=== PATIENT | male | born 1945 | race Caucasian/White ===

== ENCOUNTER 2016-11-19 16:50 | Observation (INO) | payer MEDICARE ==
[2016-11-19 16:50] VITALS: BMI 29.0
[2016-11-19] MEDS ORDERED: Nitroglycerin 2% Ointment Foilpak UD TOP STA (17:09)
[2016-11-19 17:27] LABS: BASO # 0.1 K/uL (0.0-0.2); BASO % 1.1 % (0.0-2.0); EOS # 0.2 K/uL (0.0-0.7); EOS % 3.1 % (0.0-4.0); HEMOGLOBIN 13.5 g/dL (12.0-18.0); LYMPH # 1.7 K/uL (1.0-4.3); LYMPH % 25.3 % (20.0-40.0); MEAN CELL VOLUME 79.7 fL (80.0-94.0); MEAN CORPUSCULAR HEMOGLOBIN 26.2 pg (27.0-31.0); MEAN CORPUSCULAR HGB CONC 32.9 g/dL (33.0-37.0); MEAN PLATELET VOLUME 9.7 fL (7.2-11.7); MONO # 0.6 K/uL (0.0-0.8); MONO % 8.4 % (0.0-10.0); NEUT # 4.1 K/uL (1.8-7.0); NEUT % 62.1 % (50.0-75.0); RBC 5.17 Mil/uL (4.40-5.90); RED CELL DISTRIBUTION WIDTH 14.9 % (11.5-14.5); WHITE BLOOD COUNT 6.6 K/uL (4.8-10.8)
[2016-11-19 17:32] LABS: ALBUMIN 3.9 g/dL (3.5-5.0)
[2016-11-19 17:35] LABS: ALB/GLOB RATIO 1.3 (1.0-2.1); AST/SGOT 18 U/L (17-59); BLOOD UREA NITROGEN 20 mg/dL (9-20); GFR AFRICAN-AMERICAN > 60; GFR NON-AFRICAN AMERICAN 50
[2016-11-19 17:36] LABS: ALT/SGPT 30 U/L (21-72); CALCIUM 9.2 mg/dl (8.6-10.4); HDL CHOLESTEROL 39 mg/dL (30-70)
[2016-11-19 17:37] LABS: INR 1.1; PROTHROMBIN TIME 11.8 SECONDS (9.7-12.2)
[2016-11-19 17:47] LABS: LDL CHOLESTEROL 118 mg/dL (0-129)
--- NOTE | 2016-11-19 17:56 | CT ---
PROCEDURE: CT HEAD WITHOUT CONTRAST. HISTORY: ++HTN, feels weak COMPARISON: 03/13/2016 TECHNIQUE: Axial computed tomography images were obtained through the head/brain without intravenous contrast. Radiation dose: Total exam DLP = 934.03 mGy-cm. This CT exam was performed using one or more of the following dose reduction techniques: Automated exposure control, adjustment of the mA and/or kV according to patient size, and/or use of iterative reconstruction technique. FINDINGS: HEMORRHAGE: No intracranial hemorrhage. BRAIN: No mass effect or edema. Old right frontal subcortical white matter lacune. Old left basal ganglia lacune. No evidence acute infarct. VENTRICLES: Unremarkable. No hydrocephalus. CALVARIUM: Unremarkable. PARANASAL SINUSES: Chronic left maxillary sinusitis. MASTOID AIR CELLS: Unremarkable as visualized. No inflammatory changes. OTHER FINDINGS: None. IMPRESSION: No intracranial mass, hemorrhage or evidence of acute infarct. Old left basal ganglia lacune. Old right frontal white matter lacune. Chronic left maxillary sinusitis.
--- NOTE | 2016-11-19 18:15 | C.PDOC ---
History Of Present Illness 71 year old male was brought to the ED by EMS with complaints of feeling weak, tired, slurred speech, and poorly controlled blood pressure beginning today. Patient notes his two blood pressure medications were modified yesterday, unclear on compliance. He denies any fever, nausea, or vomiting. Time Seen by Provider: 11/19/16 17:04 Chief Complaint (Nursing): Weakness/Neurological Deficit History Per: Patient History/Exam Limitations: no limitations Onset/Duration Of Symptoms: Hrs Current Symptoms Are (Timing): Still Present Fall Associated With With Symptoms: No Recent travel outside of the [place]: No Additional History Per: EMS Past Medical History Reviewed: Historical Data, Nursing Documentation, Vital Signs Vital Signs: Last Vital Signs Temp 98.6 F 11/19/16 17:01 Pulse 73 11/19/16 18:49 Resp 16 11/19/16 18:49 BP 156/86 H 11/19/16 18:49 Pulse Ox 98 11/19/16 18:49 - Medical History PMH: HTN, Hypercholesterolemia - [facility] Procedures 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 Negative for: Fever, Chills Cardiovascular: Negative for: Chest Pain, Palpitations Respiratory: Negative for: Cough, Shortness of Breath Neurological: Positive for: Other (slurred speech ) Physical Exam - Physical Exam Appears: Non-toxic, No Acute Distress Skin: Warm, Dry Head: Atraumatic Eye(s): bilateral: Normal Inspection, PERRL, EOMI Oral Mucosa: Moist Neck: Supple Chest: Symmetrical, No Deformity Cardiovascular: Rhythm Regular Respiratory: No Rales, No Rhonchi, No Wheezing Gastrointestinal/Abdominal: Soft, No Tenderness, No Distention, No Guarding, No Rebound Extremity: No Tenderness, Capillary Refill (goo capillary refill, less than 2 seconds. ) Neurological/Psych: Oriented x3, Normal Speech, Normal Cognition, Normal Cranial Nerves, Normal Motor, Normal Sensation, Normal Reflexes Gait: Steady ED Course And Treatment - Laboratory Results Result Diagrams: 11/19/16 17:20 11/19/16 17:20 Lab Interpretation: Normal O2 Sat by Pulse Oximetry: 100 (room air ) - Radiology CXR: Interpreted by Me CXR Interpretation: Yes: No Acute Disease - Other Rad head CT X-Ray: Read By Radiologist (no acute findings.) Reevaluation Time: 18:16 Reassessment Condition: Improved - Physician Consult Information Outcome Of Conversation: [id number]: d/w bren Ortega to Tele Obs. NIHSS Stroke Scale - Date/Time Evaluation Performed Date Performed: 11/19/16 Time Performed: 17:05 - How Severe is the Stoke Level of Consciousness: 0=Alert LOC to Questions: 0=Both comments correct LOC to commands: 0=Obeys both correctly Best Gaze: 0=Normal Visual: 0=No visual loss Facial: 0=Normal Motor Arm - Left: 0=No drift Motor Arm - Right: 0=No drift Motor Leg - Left: 0=No drift Motor Leg - Right: 0=No drift Limb Ataxia: 0=Absent Sensory: 0=Normal Best Language: 0=No aphasia Dysarthia: 0=Normal articulation Extinction & Inattention (Neglect): 0=Normal, no object Score: 0 Severity Of Stroke: 0= No Stroke rTPA Inclusion/Exclusion - Refusal of Treatment Patient Refused Treatment: No - Inclusion Criteria for Altepase Patient is 18 years or Older: Yes The Clinical Diagnosis of Ischemic Stroke That is Causing a Potentially Disabling Neurological Deficit: No Time of Onset is Well Established to be Less Than 270 Minute Before Treatment Would Begin: No Risk/Benefit Discussed With Patient/Family Member Present: No - Exclusion Criteria for Altepase Uncontrolled Hypertension at Time of Treatment (Systolic BP above 185 or Diastolic BP above 110 mmHg): Yes Active Internal Bleeding: No Known Bleeding Diathesis Including but Not Limited to: Platelets Below 100,000/ mm,PTT Above 40 sec After Heparin Use, Current Use of Oral Anitcoagulant With INR Greater Than 1.7 or PT Greater Than 15 secs: No Evidence of an Intracranial Hemorrhage: No Evidence of Major Acute Infarct With Signs Greater Than 1/3 MCA Territory: No Suspicion of Subarachnoid Hemorrhage on Pretreatment Evaluation Even if CT Head Negative For Hemorrhage: No - Warning to TPA With Conditions Following Conditions Weighed Against Anticipated Benefit: Yes Condition: Stroke Serevity Too Mild Medical Decision Making Medical Decision Making: uncontrolled HTN, no acute neurological s/s. w/u neg. Disposition Doctor Will See Patient In The: Hospital Counseled Patient/Family Regarding: Studies Performed, Diagnosis - Disposition Disposition: HOSPITALIZED Disposition Time: 18:18 Condition: GOOD - Clinical Impression Clinical Impression: Hypertension, uncontrolled, Weakness - Scribe Statement The provider has reviewed the documentation as recorded by the Rodneyibgrey Rivera All medical record entries made by the Omega were at my direction and personally dictated by me. I have reviewed the chart and agree that the record accurately reflects my personal performance of the history, physical exam, medical decision making, and the department course for this patient. I have also personally directed, reviewed, and agree with the discharge instructions and disposition.
[2016-11-19] MEDS ORDERED: Aspirin 325 mg EC Tablets PO STA (18:18)
[2016-11-19 18:54] LABS: SQUAMOUS EPITHIAL < 1 /hpf (0-5); URINE BILIRUBIN NEGATIVE (NEGATIVE); URINE BLOOD NEGATIVE (NEGATIVE); URINE CLARITY Clear (Clear); URINE COLOR Straw (YELLOW); URINE GLUCOSE (UA) NORMAL (Normal); URINE LEUKOCYTE ESTERASE NEG Leu/uL (Negative); URINE NITRATE NEGATIVE (NEGATIVE); URINE PROTEIN NEGATIVE (NEGATIVE); URINE UROBILINOGEN NORMAL mg/dL (0.2-1.0)
[2016-11-19 23:05] LABS: CK-MB 2.41 ng/mL (0.0-3.38)
--- NOTE | 2016-11-19 23:22 | CP.PCM.HP ---
History of Present Illness - History of Present Illness History of Present Illness: CC: dizziness. 71 year old male well known to e with h/o HTn, Hyperlipidemia, CAD and CVA in past, also has anxiety disorder, pt also is non complaint to his diet , medications and follow up, was in usual status of health till today when he was brought to the ED by EMS with complaints of feeling weak, tired, slurred speech , and poorly controlled blood pressure beginning today. Patient notes his two blood pressure medications were modified yesterday, unclear on compliance, according to family he probbaly missed his B.P medications and later on he felt warm feeling going through his head along with flushing and dizziness, i spoke to his daughter, he hailey not had any chest pain, he had some palpitations, no h/ o vertigo, neck pain, shoulder pain. He denies any fever, nausea, or vomiting. Present on Admission - Present on Admission Any Indicators Present on Admission: Yes Review of Systems - Review of Systems Systems not reviewed;Unavailable: Acuity of Condition - Constitutional Constitutional: Excessive Sweating, Fatigue, Lethargy, Weakness - EENT Eyes: absent: As Per HPI, Blind Spots, Blurred Vision, Change in Vision, Decreased Night Vision, Diplopia, Discharge, Dry Eye, Exophthalmos, Floaters, Irritation, Itchy Eyes, Loss of Peripheral Vision, Pain, Photophobia, Requires Corrective Lenses, Sees Flashes, Spots in Vision, Tunnel Vision, Other Visual Disturbances, Loss of Vision, Other Ears: absent: As Per HPI, Decreased Hearing, Ear Discharge, Ear Pain, Tinnitus, Abnormal Hearing, Disequilibrium, Dizziness, Other Nose/Mouth/Throat: absent: As Per HPI, Epistaxis, Nasal Congestion, Nasal Discharge, Nasal Obstruction, Nasal Trauma, Nose Pain, Post Nasal Drip, Sinus Pain, Sinus Pressure, Bleeding Gums, Change in Voice, Dental Pain, Dry Mouth, Dysphagia, Halitosis, Hoarsness, Lip Swelling, Mouth Lesions, Mouth Pain, Odynophagia, Sore Throat, Throat Swelling, Tongue Swelling, Facial Pain, Neck Pain, Neck Mass, Other - Cardiovascular Cardiovascular: Rapid Heart Rate. absent: As Per HPI, Acrocyanosis, Chest Pain , Chest Pain at Rest, Chest Pain with Activity, Claudication, Diaphoresis, Dyspnea, Dyspnea on Exertion, Edema, Irregular Heart Rhythm, Pain Radiating to Arm/Neck/Jaw, Leg Edema, Leg Ulcers, Lightheadedness, Orthopnea, Palpitations, Paroxysmal Nocturnal Dyspnea, Pedal Edema, Radiating Pain, Slow Heart Rate, Syncope, Other - Respiratory Respiratory: absent: As Per HPI, Cough, Dyspnea, Hemoptysis, Dyspnea on Exertion , Wheezing, Snoring, Stridor, Pain on Inspiration, Chest Congestion, Excessive Mucous Production, Change in Mucous Color, Pain with Coughing, Other - Gastrointestinal Gastrointestinal: Nausea. absent: As Per HPI, Abdominal Pain, Belching, Bloating, Change in Bowel Habits, Change in Stool Character, Coffee Ground Emesis, Constipation, Cramping, Diarrhea, Dyspepsia, Dysphagia, Early Satiety, Excessive Flatus, Fecal Incontinence, Heartburn, Hematemesis, Hematochezia, Loose Stools, Melena, Odynophagia, Temesmus, Vomiting, Other - Genitourinary Genitourinary: absent: As Per HPI, Change in Urinary Stream, Difficulty Urinating, Dysuria, Flank Pain, Hematuria, Pyuria, Nocturia, Urinary Incontinence, Urinary Frequency, Urinary Hesitance, Urinary Urgency, Voiding Freq/Small Amts, Freq UTI, Hx Renal/Bladder Calculi, Hx /Renal Surgery, Bladder Distension, Other - Musculoskeletal Musculoskeletal: Muscle Weakness. absent: As Per HPI, Abnormal Gait, Arthralgias, Atrophy, Back Pain, Deformity, Joint Swelling, Limited Range of Motion, Loss of Height, Muscle Cramps, Myalgias, Neck Pain, Numbness, Radiating Pain into Limb, Stiffness, Tingling, Other - Integumentary Integumentary: absent: As Per HPI, Acne, Alopecia, Bleeding Lesions, Change in Hair, Change in Nails, Change in Pigmentation, Changing Lesions, Dry Skin, Erythema, Furuncle, Hirsutism, Lesions, New Lesions, Non-Healing Lesions, Photosensitivity, Pruritus, Rash, Skin Pain, Skin Ulcer, Sores, Striae, Swelling , Unusual Bruising, Wounds, Jaundice, Other - Neurological Neurological: Burning Sensations, Confusion, Dizziness, Weakness. absent: As Per HPI, Abnormal Gait, Abnormal Hearing, Abnormal Movements, Abnormal Speech, Behavioral Changes, Convulsions, Disequilibrium, Numbness, Focal Weakness, Frequent Falls, Headaches, Lack of Coordination, Loss of Vision, Memory Loss, Paresthesias, Radicular Pain, Restless Legs, Sensory Deficit, Syncope, Tingling , Tremor, Vertigo, Other Visual Disturbances, Other - Psychiatric Psychiatric: absent: As Per HPI, Abnormal Sleep Pattern, Anhedonia, Anxiety, Auditory Hallucinations, Behavioral Changes, Change in Appetite, Change in Libido, Confusion, Depression, Difficulty Concentrating, Hallucinations, Homicidal Ideation, Hopelessness, Irritability, Memory Loss, Mood Swings, Panic Attacks, Paranoia, Suicidal Ideation, Visual Hallucinations, Tactile Hallucinations, Other - Endocrine Endocrine: absent: As Per HPI, Change in Body Appearance, Change in Libido, Cold Intolorance, Deepening of Voice, Excessive Sweating, Fatigue, Flushing, Heat Intolorance, Increase in Ring/Shoe/Hat Size, Palpitations, Polydipsia, Polyphagia, Polyuria, Other - Hematologic/Lymphatic Hematologic: absent: As Per HPI, Easy Bleeding, Easy Bruising, Lymphadenopathy, Other Past Patient History - Infectious Disease Hx of Infectious Diseases: None - Past Medical History & Family History Past Medical History?: Yes - Past Social History Smoking Status: Never Smoked - CARDIAC Hx Hypercholesterolemia: Yes Hx Hypertension: Yes - PULMONARY Hx Respiratory Disorders: No - NEUROLOGICAL Hx Neurological Disorder: Yes HX Cerebrovascular Accident: Yes - HEENT Hx HEENT Problems: No - RENAL Hx Chronic Kidney Disease: No - ENDOCRINE/METABOLIC Hx Endocrine Disorders: No - HEMATOLOGICAL/ONCOLOGICAL Hx Blood Disorders: Yes Hx Blood Transfusions: Yes Hx Blood Transfusion Reaction: No Hx Cancer: Yes (COLON CA, plyps removed) - INTEGUMENTARY Hx Dermatological Problems: No - MUSCULOSKELETAL/RHEUMATOLOGICAL Hx Musculoskeletal Disorders: No Hx Falls: No - GASTROINTESTINAL Hx Gastrointestinal Disorders: Yes Other/Comment: intestinal polyps removed - GENITOURINARY/GYNECOLOGICAL Hx Genitourinary Disorders: No - PSYCHIATRIC Hx Substance Use: No - SURGICAL HISTORY Hx Surgeries: Yes Other/Comment: COLON RESECTION - ANESTHESIA Hx Anesthesia: Yes Hx Anesthesia Reactions: No Hx Malignant Hyperthermia: No Meds Allergies/Adverse Reactions: Allergies Allergy/AdvReac Type Severity Reaction Status Date / Time No Known Allergies Allergy Verified 11/19/16 16:59 Physical Exam - Constitutional Appears: No Acute Distress Additional comments: face is flushed - Eye Exam Eye Exam: EOMI, Normal appearance, PERRL Pupil Exam: NORMAL ACCOMODATION, PERRL - Cardiovascular Exam Cardiovascular Exam: +S1, +S2, +S4 Additional comments: 2/6 ESM at apex - GI/Abdominal Exam GI & Abdominal Exam: Normal Bowel Sounds, Soft. absent: Tenderness - Extremities Exam Extremities exam: Positive for: pedal edema Additional comments: +1 non pitting edema - Neurological Exam Neurological exam: Alert, CN II-XII Intact, Normal Gait, Oriented x3, Reflexes Normal - Psychiatric Exam Psychiatric exam: Anxious - Skin Skin Exam: Dry, Intact, Normal Color, Warm Results - Vital Signs Recent Vital Signs: Last Vital Signs Temp 97.8 F 11/19/16 20:50 Pulse 73 11/19/16 20:50 Resp 18 11/19/16 20:50 BP 115/73 11/19/16 20:50 Pulse Ox 96 11/19/16 20:50 - Labs Result Diagrams: 11/19/16 17:20 11/19/16 17:20 Labs: Laboratory Results - last 24 hr 11/19/16 11/19/16 18:47 22:42 Total Creatine Kinase 181 H CK-MB (Mass) 2.41 Troponin I, Quant < 0.0120 Urine Color Straw Urine Clarity Clear Urine pH 6.0 Ur Specific [place] 1.006 Urine Protein Negative Urine Glucose (UA) Normal Urine Ketones Negative Urine Blood Negative Urine Nitrate Negative Urine Bilirubin Negative Urine Urobilinogen Normal Ur Leukocyte Esterase Neg Urine WBC (Auto) < 1 Urine RBC (Auto) < 1 Ur Squamous Epith Cells < 1 Assessment & Plan (1) Postural dizziness with near syncope Status: Acute (2) Accelerated hypertension Status: Acute (3) Hyperlipidemia Status: Acute
--- NOTE | 2016-11-20 08:42 | RAD ---
HISTORY: adm COMPARISON: Comparison is made to 03/13/2016 FINDINGS: LUNGS: No evidence of new infiltrate or consolidation in the lungs. Mild elevation of the left hemidiaphragm is again noted. PLEURA: No significant pleural effusion identified, no pneumothorax apparent. CARDIOVASCULAR: Normal. OSSEOUS STRUCTURES: No significant abnormalities. VISUALIZED UPPER ABDOMEN: Normal. OTHER FINDINGS: None. IMPRESSION: No active disease.
[2016-11-20] MEDS: Enoxaparin 30 mg Syringe SC SCH (10:07)
[2016-11-20 15:53] LABS: CK-MB 2.99 ng/mL (0.0-3.38)
--- NOTE | 2016-11-21 01:41 | CP.PCM.PN ---
Subjective - Date & Time of Evaluation Date of Evaluation: 11/20/16 Time of Evaluation: 18:00 - Subjective Subjective: PT SEE AND EXAMINED,IMPROVING Objective - Vital Signs/Intake and Output Vital Signs (last 24 hours): Temp Pulse Resp BP Pulse Ox 98 F 70 20 149/83 98 11/20/16 23:40 11/20/16 23:40 11/20/16 23:40 11/20/16 23:40 11/20/16 23:40 - Medications Medications: Current Medications Allopurinol (Zyloprim) 100 mg PO BID [facility] Last Admin: 11/20/16 17:48 Dose: 100 mg Alprazolam (Xanax) 0.25 mg PO BID [facility] Stop: 11/27/16 10:01 Last Admin: 11/20/16 17:48 Dose: 0.25 mg Aspirin (Ecotrin) 81 mg PO DAILY [facility] Last Admin: 11/20/16 10:06 Dose: 81 mg Carvedilol (Coreg) 12.5 mg PO BID [facility] Last Admin: 11/20/16 17:48 Dose: 12.5 mg Clopidogrel Bisulfate (Plavix) 75 mg PO DAILY [facility] Last Admin: 11/20/16 10:06 Dose: 75 mg Colchicine (Colocrys) 0.6 mg PO BID [facility] Last Admin: 11/20/16 17:47 Dose: 0.6 mg Enoxaparin Sodium (Lovenox) 30 mg SC DAILY [facility] Last Admin: 11/20/16 10:07 Dose: 30 mg Ergocalciferol (Drisdol 50,000 Intl Units Cap) 1 cap PO QWK [facility] Lamotrigine (Lamictal) 50 mg PO BID [facility] Last Admin: 11/20/16 18:44 Dose: 50 mg Losartan Potassium (Cozaar) 100 mg PO DAILY [facility] Last Admin: 11/20/16 10:04 Dose: 100 mg Rosuvastatin Calcium (Crestor) 10 mg PO HS [facility] Last Admin: 11/20/16 22:10 Dose: 10 mg - Labs Labs: PT 11.8 SECONDS (9.7-12.2) 11/19/16 17:20 INR 1.1 11/19/16 17:20 APTT 31 SECONDS (21-34) 11/19/16 17:20 Assessment and Plan (1) Postural dizziness with near syncope Assessment & Plan: CT head neg Status: Acute (2) Accelerated hypertension Assessment & Plan: troponinsx 3 neg Status: Acute (3) Hyperlipidemia Status: Acute
[2016-11-21] MEDS: Enoxaparin 30 mg Syringe SC SCH (09:54)
[2016-11-21 15:17] VITALS: BP 153/96; PULSE 72; RESP 20; TEMP 97.7; O2SAT 100
--- NOTE | 2016-11-21 21:28 | CP.PCM.DIS ---
Provider - Provider Date of Admission: 11/19/16 18:20 Attending physician: Raúl Hill MD Time Spent in preparation of Discharge (in minutes): 45 Diagnosis - Discharge Diagnosis (1) Postural dizziness with near syncope Status: Acute (2) Accelerated hypertension Status: Acute (3) Hyperlipidemia Status: Acute Hospital Course - Lab Results Lab Results: Most Recent Lab Values WBC 6.6 K/uL (4.8-10.8) 11/19/16 17:20 RBC 5.17 Mil/uL (4.40-5.90) 11/19/16 17:20 Hgb 13.5 g/dL (12.0-18.0) 11/19/16 17:20 Hct 41.2 % (35.0-51.0) 11/19/16 17:20 MCV 79.7 fL (80.0-94.0) L 11/19/16 17:20 MCH 26.2 pg (27.0-31.0) L 11/19/16 17:20 MCHC 32.9 g/dL (33.0-37.0) L 11/19/16 17:20 RDW 14.9 % (11.5-14.5) H 11/19/16 17:20 Plt Count 188 K/uL (130-400) 11/19/16 17:20 MPV 9.7 fL (7.2-11.7) 11/19/16 17:20 Neut % (Auto) 62.1 % (50.0-75.0) 11/19/16 17:20 Lymph % (Auto) 25.3 % (20.0-40.0) 11/19/16 17:20 [place] % (Auto) 8.4 % (0.0-10.0) 11/19/16 17:20 Eos % (Auto) 3.1 % (0.0-4.0) 11/19/16 17:20 Baso % (Auto) 1.1 % (0.0-2.0) 11/19/16 17:20 Neut # 4.1 K/uL (1.8-7.0) 11/19/16 17:20 Lymph # 1.7 K/uL (1.0-4.3) 11/19/16 17:20 [place] # 0.6 K/uL (0.0-0.8) 11/19/16 17:20 Eos # 0.2 K/uL (0.0-0.7) 11/19/16 17:20 Baso # 0.1 K/uL (0.0-0.2) 11/19/16 17:20 PT 11.8 SECONDS (9.7-12.2) 11/19/16 17:20 INR 1.1 11/19/16 17:20 APTT 31 SECONDS (21-34) 11/19/16 17:20 Sodium 141 mmol/L (132-148) 11/19/16 17:20 Potassium 3.7 mmol/L (3.6-5.2) 11/19/16 17:20 Chloride 102 mmol/L (98-107) 11/19/16 17:20 Carbon Dioxide 22 mmol/L (22-30) 11/19/16 17:20 Anion Gap 20 (10-20) 11/19/16 17:20 BUN 20 mg/dL (9-20) 11/19/16 17:20 Creatinine 1.4 MG/DL (0.8-1.5) 11/19/16 17:20 Est GFR ( Amer) > 60 11/19/16 17:20 Est GFR (Non-Af Amer) 50 11/19/16 17:20 Random Glucose 125 mg/dL (75-110) H 11/19/16 17:20 Hemoglobin A1c 6.7 % (4.2-6.5) H 11/19/16 17:20 Calcium 9.2 mg/dl (8.6-10.4) 11/19/16 17:20 Total Bilirubin 0.7 mg/dL (0.2-1.3) 11/19/16 17:20 AST 18 U/L (17-59) 11/19/16 17:20 ALT 30 U/L (21-72) 11/19/16 17:20 Alkaline Phosphatase 84 U/L (38-126) 11/19/16 17:20 Total Creatine Kinase 270 U/L (55-170) H 11/20/16 15:22 CK-MB (Mass) 2.99 ng/mL (0.0-3.38) 11/20/16 15:22 Troponin I < 0.0120 ng/mL (0.00-0.120) 11/19/16 17:20 Troponin I, Quant < 0.0120 ng/mL (0.00-0.120) 11/20/16 15:22 Total Protein 6.9 g/dL (6.3-8.3) 11/19/16 17:20 Albumin 3.9 g/dL (3.5-5.0) 11/19/16 17:20 Globulin 3.0 gm/dL (2.2-3.9) 11/19/16 17:20 Albumin/Globulin Ratio 1.3 (1.0-2.1) 11/19/16 17:20 Triglycerides 86 mg/dL (0-149) D 11/19/16 17:20 Cholesterol 172 mg/dL (0-199) 11/19/16 17:20 LDL Cholesterol Direct 118 mg/dL (0-129) 11/19/16 17:20 HDL Cholesterol 39 mg/dL (30-70) 11/19/16 17:20 Urine Color Straw (YELLOW) 11/19/16 18:47 Urine Clarity Clear (Clear) 11/19/16 18:47 Urine pH 6.0 (5.0-8.0) 11/19/16 18:47 Ur Specific [place] 1.006 (1.003-1.030) 11/19/16 18:47 Urine Protein Negative mg/dL (NEGATIVE) 11/19/16 18:47 Urine Glucose (UA) Normal mg/dL (Normal) 11/19/16 18:47 Urine Ketones Negative mg/dL (NEGATIVE) 11/19/16 18:47 Urine Blood Negative (NEGATIVE) 11/19/16 18:47 Urine Nitrate Negative (NEGATIVE) 11/19/16 18:47 Urine Bilirubin Negative (NEGATIVE) 11/19/16 18:47 Urine Urobilinogen Normal mg/dL (0.2-1.0) 11/19/16 18:47 Ur Leukocyte Esterase Neg Deep/uL (Negative) 11/19/16 18:47 Urine WBC (Auto) < 1 /hpf (0-5) 11/19/16 18:47 Urine RBC (Auto) < 1 /hpf (0-3) 11/19/16 18:47 Ur Squamous Epith Cells < 1 /hpf (0-5) 11/19/16 18:47 - Hospital Course Hospital Course: pt Ct head is neg, i discussed the case with his daughter, no dizziness, chest pain, palpitation tronponin x 3 neg Pt is for discharge to home follow up with me next week Discharge Exam - Head Exam Head Exam: ATRAUMATIC, NORMAL INSPECTION, NORMOCEPHALIC - Eye Exam Eye Exam: EOMI, Normal appearance, PERRL Pupil Exam: NORMAL ACCOMODATION, PERRL - ENT Exam ENT Exam: Mucous Membranes Moist - Respiratory Exam Respiratory Exam: Clear to PA & Lateral, NORMAL BREATHING PATTERN - Cardiovascular Exam Cardiovascular Exam: REGULAR RHYTHM, +S1, +S2 - GI/Abdominal Exam GI & Abdominal Exam: Normal Bowel Sounds - Rectal Exam Rectal Exam: Deferred - Neurological Exam Neurological exam: Alert, CN II-XII Intact, Normal Gait, Oriented x3, Reflexes Normal - Psychiatric Exam Psychiatric exam: Normal Affect, Normal Mood Discharge Plan - Follow Up Plan Condition: GOOD Disposition: HOME/ ROUTINE Instructions: Heart Healthy Diet (DC), Weakness (ED), Hypertension (DC) Referrals: Raúl Hill MD [Staff Provider] -
--- NOTE | 2016-11-22 13:04 | CARD ---
APPROVED REPORT EKG Measurement Heart [id number] <Conclusion> Normal sinus rhythm Normal ECG
[2016-11-26] MEDS ORDERED: Ergocalciferol 50,000 Intl Units Cap PO SCH (10:00)
== END 2016-11-21 18:30 | disposition home or self-care (01) ==
LOC: C.ER 16:50 → C.9E 18:20 → C.6T 19:29
PROVIDERS: ADMIT Internal Medicine; ATTEND Internal Medicine
DX: I10 Essential (primary) hypertension (principal); R42 Dizziness and giddiness; R55 Syncope and collapse; Z91.14 Patient's other noncompliance with medication regimen; R53.1 Weakness; R53.83 Other fatigue; R47.81 Slurred speech; E78.00 Pure hypercholesterolemia, unspecified; Z86.73 Personal history of transient ischemic attack (TIA), and cerebral infarction without residual deficits; I25.10 Atherosclerotic heart disease of native coronary artery without angina pectoris; E78.5 Hyperlipidemia, unspecified; F41.9 Anxiety disorder, unspecified
CPT/HCPCS: 36415; 70450; 71010; 80053; 80061; 81001; 83036; 84484; 85025; 85610; 85730; 96374; 97116; 97162; 99285; G0378; G8978; G8979; J1650; J2405

== ENCOUNTER 2017-01-15 13:02 | Inpatient (IN) | payer MEDICARE ==
[2017-01-15 13:02] VITALS: BMI 29.0
--- NOTE | 2017-01-15 13:39 | C.PDOC ---
History Of Present Illness 71 yr old male presents to the ER for evaluation of slurred speech, stating "feels like heat throughout my face" which started around 11am today. Patient also reports of dizziness, which he states he has been dizzy for the past 1 week. Patient reports he was recently started on amlodipine by his PMD. Daughter at bedside states the neighbor noticed the slurred speech today but has resolved since now. Patient denies fever, chills, vision changes, chest pain , SOB, nausea, vomiting, weakness or numbness. Time Seen by Provider: 01/15/17 13:28 Chief Complaint (Nursing): Dizziness/Lightheaded History Per: Patient, Family (Daughter) History/Exam Limitations: no limitations Onset/Duration Of Symptoms: Sudden Onset ([employer]) Seizure Or Post-ictal Symptoms: None Fall Associated With With Symptoms: No - Symptoms Of CVA Associated Symptoms: denies: New Vision Deficit(Left), New Vision Deficit(Right) Past Medical History Reviewed: Historical Data, Nursing Documentation, Vital Signs Vital Signs: Last Vital Signs Temp 97.7 F 01/15/17 16:39 Pulse 54 L 01/15/17 16:39 Resp 20 01/15/17 16:39 BP 158/83 H 01/15/17 16:39 Pulse Ox 99 01/15/17 17:41 - Medical History PMH: HTN, Hypercholesterolemia - [facility] Procedures 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 Constitutional: Negative for: Fever, Chills Eyes: Negative for: Vision Change Cardiovascular: Negative for: Chest Pain Respiratory: Negative for: Shortness of Breath Gastrointestinal: Negative for: Vomiting Neurological: Positive for: Dizziness. Negative for: Weakness, Numbness Physical Exam - Physical Exam Appears: Non-toxic, No Acute Distress Skin: Warm, Dry, No Rash Head: Atraumatic, Normacephalic Oral Mucosa: Moist Throat: Normal, No Erythema, No Exudate, No Drooling Neck: Normal, Normal ROM, Supple Chest: Symmetrical, No Tenderness Cardiovascular: Rhythm Regular, No Murmur Respiratory: Normal Breath Sounds, No Rales, No Rhonchi, No Wheezing Gastrointestinal/Abdominal: Normal Exam, Soft, No Tenderness, No Guarding, No Rebound Extremity: Normal ROM, No Swelling Neurological/Psych: Oriented x3, Normal Speech, Normal Motor ED Course And Treatment - Laboratory Results Result Diagrams: 01/15/17 13:59 01/15/17 13:59 ECG: Interpreted By Me ECG Rhythm: Sinus Rhythm ECG Interpretation: Normal Interpretation Of ECG: No ST/T wave changes. Rate From EC (BPM) O2 Sat by Pulse Oximetry: 99 (RA) Pulse Ox Interpretation: Normal - CT Scan/US CT - Head Other Rad Studies (CT/US): Read By Radiologist, Radiology Report Reviewed CT/US Interpretation: PROCEDURE: CT HEAD WITHOUT CONTRAST. HISTORY: Code Stroke. COMPARISON: 11/19/2016. TECHNIQUE: Axial computed tomography images were obtained through the head/brain without intravenous contrast. Radiation dose: Total exam DLP = 950.75 mGy-cm. This CT exam was performed using one or more of the following dose reduction techniques: Automated exposure control, adjustment of the mA and/or kV according to patient size, and/or use of iterative reconstruction technique. FINDINGS: HEMORRHAGE: No intracranial hemorrhage. BRAIN: No mass effect or edema. No significant atrophy. Mild periventricular white matter lucency with patchy deep/subcortical white matter lucency in the centrum semiovale, consistent with age related microvascular ischemic change. No evidence of acute infarct. VENTRICLES: Unremarkable. No hydrocephalus. CALVARIUM: Unremarkable. PARANASAL SINUSES: Mild chronic left maxillary sinusitis. MASTOID AIR CELLS: Unremarkable as visualized. No inflammatory changes. OTHER FINDINGS: None. IMPRESSION: No intracranial mass , hemorrhage or evidence of acute infarct. Minor findings as above. The findings in this examination were discussed by telephone with Dr. Pérez at 1: 45 p.m. on 01/15/2017. NIHSS Stroke Scale - Date/Time Evaluation Performed Date Performed: 01/15/17 - How Severe is the Stoke Level of Consciousness: 0=Alert LOC to Questions: 0=Both comments correct LOC to commands: 0=Obeys both correctly Best Gaze: 0=Normal Visual: 0=No visual loss Facial: 0=Normal Motor Arm - Left: 0=No drift Motor Arm - Right: 0=No drift Motor Leg - Left: 0=No drift Motor Leg - Right: 0=No drift Limb Ataxia: 0=Absent Sensory: 0=Normal Best Language: 0=No aphasia Dysarthia: 0=Normal articulation Extinction & Inattention (Neglect): 0=Normal, no object Score: 0 Severity Of Stroke: 0= No Stroke rTPA Inclusion/Exclusion - Refusal of Treatment Patient Refused Treatment: No - Inclusion Criteria for Altepase Patient is 18 years or Older: Yes The Clinical Diagnosis of Ischemic Stroke That is Causing a Potentially Disabling Neurological Deficit: No Time of Onset is Well Established to be Less Than 270 Minute Before Treatment Would Begin: Yes Risk/Benefit Discussed With Patient/Family Member Present: No Medical Decision Making Medical Decision Making: ro cva/tia, metabolic, svc syndrome, infectious etillogyu PLAN: * CT - Head * CXR * EKG * Troponin * CBC * CMP * Urinalysis 230: head ct neg. resolved symtpoms, discussed with dr hutton, not tpa candidate. labs cxr neg as read by me. defered futher w/u to inpt. dr guevara, covering dr guerrero accepts requests asa, plavix, crestor. (pt didnot take today at home) Disposition - Disposition Disposition: HOSPITALIZED Disposition Time: 02:00 Condition: STABLE - Clinical Impression Clinical Impression: Dizziness, Slurred speech - Scribe Statement The provider has reviewed the documentation as recorded by the Omega Manjarrez Provider Attestation: All medical record entries made by the Rodneyibe were at my direction and personally dictated by me. I have reviewed the chart and agree that the record accurately reflects my personal performance of the history, physical exam, medical decision making, and the department course for this patient. I have also personally directed, reviewed, and agree with the discharge instructions and disposition. Decision To Admit - Pt Status Changed To: Hospital Disposition Of: Inpatient - Admit Certification Admit to Inpatient:: After my assessment, the patient will require hospitalization for at least two midnights. This is because of the severity of symptoms shown, intensity of services needed, and/or the medical risk in this patient being treated as an outpatient. - InPatient: Physician Admission Certification: I certify that this patient requires 2 or more midnights of care for the following reason:: r/o cva - . Bed Request Type: Telemetry Admitting Physician: Janet Guevara Patient Diagnosis: Dizziness, Slurred speech
--- NOTE | 2017-01-15 13:50 | CT ---
PROCEDURE: CT HEAD WITHOUT CONTRAST. HISTORY: Code Stroke COMPARISON: 11/19/2016 TECHNIQUE: Axial computed tomography images were obtained through the head/brain without intravenous contrast. Radiation dose: Total exam DLP = 950.75 mGy-cm. This CT exam was performed using one or more of the following dose reduction techniques: Automated exposure control, adjustment of the mA and/or kV according to patient size, and/or use of iterative reconstruction technique. FINDINGS: HEMORRHAGE: No intracranial hemorrhage. BRAIN: No mass effect or edema. No significant atrophy. Mild periventricular white matter lucency with patchy deep/subcortical white matter lucency in the centrum semiovale, consistent with age related microvascular ischemic change. No evidence of acute infarct. VENTRICLES: Unremarkable. No hydrocephalus. CALVARIUM: Unremarkable. PARANASAL SINUSES: Mild chronic left maxillary sinusitis. MASTOID AIR CELLS: Unremarkable as visualized. No inflammatory changes. OTHER FINDINGS: None. IMPRESSION: No intracranial mass, hemorrhage or evidence of acute infarct. Minor findings as above. The findings in this examination were discussed by telephone with Dr. Pérez at 1:45 p.m. on 01/15/2017.
[2017-01-15 14:04] LABS: BASO # 0.1 K/uL (0.0-0.2); BASO % 1.5 % (0.0-2.0); EOS # 0.1 K/uL (0.0-0.7); EOS % 1.3 % (0.0-4.0); HEMATOCRIT 42.4 % (35.0-51.0); LYMPH # 1.5 K/uL (1.0-4.3); LYMPH % 17.3 % (20.0-40.0); MEAN CELL VOLUME 80.8 fL (80.0-94.0); MEAN CORPUSCULAR HEMOGLOBIN 26.6 pg (27.0-31.0); MEAN CORPUSCULAR HGB CONC 32.9 g/dL (33.0-37.0); MEAN PLATELET VOLUME 9.5 fL (7.2-11.7); MONO # 0.6 K/uL (0.0-0.8); MONO % 7.3 % (0.0-10.0); NRBC % 0.1 % (0.0-2.0); RED CELL DISTRIBUTION WIDTH 15.2 % (11.5-14.5); WHITE BLOOD COUNT 8.8 K/uL (4.8-10.8)
[2017-01-15 14:12] LABS: CHLORIDE 103 mmol/L (98-107); INR 1.1
[2017-01-15 14:13] LABS: SODIUM 139 mmol/L (132-148)
[2017-01-15 14:14] LABS: POTASSIUM 4.3 mmol/L (3.6-5.2)
[2017-01-15 14:15] LABS: CHOLESTEROL 125 mg/dL (0-199)
[2017-01-15 14:16] LABS: ALB/GLOB RATIO 1.4 (1.0-2.1); ALKALINE PHOSPHATASE 97 U/L (38-126); ALT/SGPT 44 U/L (21-72); AST/SGOT 23 U/L (17-59); BILIRUBIN,TOTAL 1.1 mg/dL (0.2-1.3); BLOOD UREA NITROGEN 21 mg/dL (9-20); CARBON DIOXIDE 22 mmol/L (22-30); GFR AFRICAN-AMERICAN > 60; GLUCOSE,RANDOM 99 mg/dL (75-110); TOTAL PROTEIN 7.1 g/dL (6.3-8.3)
[2017-01-15 14:17] LABS: CALCIUM 8.9 mg/dl (8.6-10.4)
[2017-01-15 14:45] LABS: RBC URINE < 1 /hpf (0-3); URINE BILIRUBIN NEGATIVE (NEGATIVE); URINE BLOOD NEGATIVE (NEGATIVE); URINE COLOR Yellow (YELLOW); URINE GLUCOSE (UA) NORMAL (Normal); URINE KETONE NEGATIVE (NEGATIVE); URINE LEUKOCYTE ESTERASE NEG Leu/uL (Negative); URINE PROTEIN NEGATIVE (NEGATIVE); URINE UROBILINOGEN NORMAL mg/dL (0.2-1.0)
--- NOTE | 2017-01-15 15:47 | CP.PCM.HP ---
Past Patient History - Infectious Disease Hx of Infectious Diseases: None - Past Medical History & Family History Past Medical History?: Yes - Past Social History Smoking Status: Never Smoked - CARDIAC Hx Hypercholesterolemia: Yes Hx Hypertension: Yes - PULMONARY Hx Respiratory Disorders: No - NEUROLOGICAL Hx Neurological Disorder: Yes HX Cerebrovascular Accident: Yes - HEENT Hx HEENT Problems: No - RENAL Hx Chronic Kidney Disease: No - ENDOCRINE/METABOLIC Hx Endocrine Disorders: No - HEMATOLOGICAL/ONCOLOGICAL Hx Blood Disorders: Yes Hx Blood Transfusions: Yes Hx Blood Transfusion Reaction: No Hx Cancer: Yes (COLON CA, plyps removed) - INTEGUMENTARY Hx Dermatological Problems: No - MUSCULOSKELETAL/RHEUMATOLOGICAL Hx Musculoskeletal Disorders: No Hx Falls: No - GASTROINTESTINAL Hx Gastrointestinal Disorders: Yes Other/Comment: intestinal polyps removed - GENITOURINARY/GYNECOLOGICAL Hx Genitourinary Disorders: No - PSYCHIATRIC Hx Substance Use: No - SURGICAL HISTORY Hx Surgeries: Yes Other/Comment: COLON RESECTION - ANESTHESIA Hx Anesthesia: Yes Hx Anesthesia Reactions: No Hx Malignant Hyperthermia: No Meds Allergies/Adverse Reactions: Allergies Allergy/AdvReac Type Severity Reaction Status Date / Time No Known Allergies Allergy Verified 01/15/17 13:20 Physical Exam - Constitutional Appears: Well - Head Exam Head Exam: ATRAUMATIC, NORMAL INSPECTION, NORMOCEPHALIC - Eye Exam Eye Exam: EOMI, Normal appearance, PERRL Pupil Exam: NORMAL ACCOMODATION, PERRL - ENT Exam ENT Exam: Mucous Membranes Moist, Normal Exam - Neck Exam Neck exam: Positive for: Normal Inspection - Respiratory Exam Respiratory Exam: Decreased Breath Sounds - Cardiovascular Exam Cardiovascular Exam: REGULAR RHYTHM, +S1, +S2 - GI/Abdominal Exam GI & Abdominal Exam: Diminished Bowel Sounds, Soft - Rectal Exam Rectal Exam: Deferred Results - Vital Signs Recent Vital Signs: Last Vital Signs Temp 98.4 F 01/15/17 13:15 Pulse 70 01/15/17 15:44 Resp 16 01/15/17 15:44 BP 134/85 01/15/17 15:44 Pulse Ox 100 01/15/17 15:44 - Labs Result Diagrams: 01/15/17 13:59 01/15/17 13:59
--- NOTE | 2017-01-15 15:49 | RAD ---
HISTORY: code stroke COMPARISON: 11/19/2016 FINDINGS: LUNGS: No active pulmonary disease. PLEURA: Mild nonspecific elevation of the right hemidiaphragm, unchanged from prior examination. No pleural effusion or pneumothorax. CARDIOVASCULAR: Normal. OSSEOUS STRUCTURES: No significant abnormalities. VISUALIZED UPPER ABDOMEN: Normal. OTHER FINDINGS: None. IMPRESSION: No active disease.
[2017-01-16] MEDS ORDERED: Home Med 1 UNIT (Simvastatin [Simvastatin] 40 MG) PO SCH (10:00)
--- NOTE | 2017-01-16 11:15 | CP.PCM.PN ---
Subjective - Date & Time of Evaluation Date of Evaluation: 01/23/17 Time of Evaluation: 10:40 - Subjective Subjective: clinically same Objective - Vital Signs/Intake and Output Vital Signs (last 24 hours): Temp Pulse Resp BP Pulse Ox 98.3 F 72 18 148/73 99 01/16/17 07:50 01/16/17 07:50 01/16/17 07:50 01/16/17 09:06 01/16/17 07:50 Intake and Output: 01/16/17 01/16/17 06:59 18:59 Output Total 250 Balance -250 - Medications Medications: Current Medications Allopurinol (Zyloprim) 100 mg PO BID [facility] Last Admin: 01/16/17 09:07 Dose: 100 mg Alprazolam (Xanax) 0.25 mg PO BID [facility] Stop: 01/22/17 18:01 Last Admin: 01/16/17 09:08 Dose: 0.25 mg Carvedilol (Coreg) 12.5 mg PO BID [facility] Last Admin: 01/16/17 09:06 Dose: 12.5 mg Clopidogrel Bisulfate (Plavix) 75 mg PO DAILY [facility] Last Admin: 01/16/17 09:08 Dose: 75 mg Colchicine (Colocrys) 0.6 mg PO BID [facility] Last Admin: 01/16/17 09:08 Dose: 0.6 mg Lamotrigine (Lamictal) 50 mg PO BID [facility] Last Admin: 01/16/17 09:08 Dose: 50 mg Losartan Potassium (Cozaar) 100 mg PO DAILY [facility] Last Admin: 01/16/17 09:06 Dose: 100 mg Meclizine HCl (Antivert) 25 mg PO TID PRN PRN Reason: Dizziness Last Admin: 01/16/17 09:07 Dose: 25 mg Pneumococcal Polyvalent Vaccine (Pneumovax 23 Vaccine) 0.5 ml IM .ONCE ONE Stop: 01/18/17 10:01 Rosuvastatin Calcium (Crestor) 40 mg PO [facility] Last Admin: 01/15/17 22:30 Dose: 40 mg - Labs Labs: PT 12.7 SECONDS (9.7-12.2) H 01/15/17 13:59 INR 1.1 01/15/17 13:59 APTT 30 SECONDS (21-34) 01/15/17 13:59 - Constitutional Appears: Well - Head Exam Head Exam: ATRAUMATIC, NORMAL INSPECTION, NORMOCEPHALIC - Eye Exam Eye Exam: EOMI, Normal appearance, PERRL Pupil Exam: NORMAL ACCOMODATION, PERRL - ENT Exam ENT Exam: Mucous Membranes Moist, Normal Exam - Neck Exam Neck Exam: Full ROM, Normal Inspection. absent: Lymphadenopathy - Respiratory Exam Respiratory Exam: Decreased Breath Sounds - Cardiovascular Exam Cardiovascular Exam: REGULAR RHYTHM, +S1, +S2 - GI/Abdominal Exam GI & Abdominal Exam: Soft, Diminished Bowel Sounds - Rectal Exam Rectal Exam: Deferred
[2017-01-16] MEDS ORDERED: guaiFENesin 100 mg/5 ml Syrup UD PO PRN (18:18)
--- NOTE | 2017-01-17 04:08 | CON ---
REASON FOR CONSULTATION: Slurring of speech and dizziness. HISTORY OF PRESENT ILLNESS: The patient is a 71-year-old male, who was in usual state of health yesterday when his neighbor noticed that the patient was having slurring of speech. The patient also experiencing dizziness over the last 1 week. Slurring of speech resolved by the time the patient came to the emergency room. The patient denied any focal weakness in arms or legs. He feels his dizziness is also little better now. Denies any focal weakness in arms or legs. He had no further episode of slurring of speech. REVIEW OF SYSTEMS: Denies any headache, chest pain, shortness of breath, abdominal pain, constipation, diarrhea, dysuria, pyuria, cough, or sputum production. PAST MEDICAL HISTORY: Includes hypertension, hypercholesterolemia, and questionable seizure. MEDICATIONS: His medications at home include lamotrigine 50 mg b.i.d., simvastatin, losartan, colchicine, Plavix, Coreg, Ecotrin, Zyloprim, and Xanax. ALLERGIES: NO KNOWN DRUG ALLERGIES. SOCIAL HISTORY: Denies smoking, use of alcohol, or illicit drugs. FAMILY HISTORY: Reviewed and noncontributory to the case. PHYSICAL EXAMINATION: GENERAL: The patient is an elderly pleasant male lying on the bed, in no acute distress. VITAL SIGNS: His blood pressure is 148/73, heart rate is 72 per minute, breathing at a rate 16 per minute, and temperature is 98.3 degrees Fahrenheit. HEENT: Head is normocephalic, atraumatic. NECK: Supple. There is no carotid bruit. LUNGS: Clear. CARDIOVASCULAR: S1 and S2 audible. No murmurs. ABDOMEN: Soft and nontender with bowel sounds present. NEUROLOGIC: Mental Status: The patient is awake, alert and oriented to time, place, and person. Speech is fluent. Naming and repetition are normal. Memory and cognition are intact. Cranial Nerve Examination: Pupils are 4 mm bilaterally, reactive to light. Visual grady are full. Extraocular movements are intact. There is no facial asymmetry. Palate is upgoing bilaterally and tongue is midline. Motor Examination: Tone is normal. Power is 5/5 bilaterally in all extremities. Reflexes +2 and symmetrical. Plantars are downgoing bilaterally. Cerebellar examination: [id number] shows no dysmetria. Sensory examination is intact to soft touch and pinprick. Gait is deferred at the moment. LABORATORY DATA: Labs reviewed shows WBC 8.8, hemoglobin of 13.9, hematocrit 42.4 and platelets of 168. Sodium is 139, potassium 4.3, chloride 103, carbon dioxide 22, BUN of 21, creatinine 1.4 and glucose of 99. His LDL is 71. He had a CT scan of the head done, which shows no acute intracranial pathology. IMPRESSION: Status post slurring of speech associated with dizziness. This was possibly secondary to a transient ischemic attack. RECOMMENDATIONS: 1. The patient to have MRI of the brain without contrast. 2. The patient is also to have carotid Doppler study. 3. The patient is also to have an echocardiogram. 4. The patient is to have an electroencephalogram. 5. The patient is to be continued on aspirin. 6. The patient is also to be continued on Lamictal for possible underlying seizure. 7. I agree with using meclizine as it seems his dizziness is better with it. 8. Please continue supportive care and other treatment. 9. The patient was not a candidate for TPA administration because of the patient's symptoms resolved completely. 11. Please continue supportive care and other treatment. Thank you for the opportunity to participate in the care of this patient. Ronnie Marin MD
--- NOTE | 2017-01-17 13:19 | CARD ---
APPROVED REPORT EXAM: Two-dimensional and M-mode echocardiogram with Doppler and color Doppler. Other Information Quality : GoodRhythm : NSR INDICATION CVA/TIA Dizziness and Vertigo RISK FACTORS Hypertension Hyperlipidemia Diabetes 2D DIMENSIONS IVSd1.0 (0.7-1.1cm)LVDd3.6 (3.9-5.9cm) PWd0.9 (0.7-1.1cm)LVDs2.2 (2.5-4.0cm) FS (%) 40.1 %LVEF (%)71.6 (>50%) M-Mode DIMENSIONS RVDd1.87 (2.1-3.2cm)Left Atrium (MM)3.47 (2.5-4.0cm) IVSd1.42 (0.7-1.1cm)Aortic Root3.43 (2.2-3.7cm) LVDd3.99 (4.0-5.6cm)Aortic Cusp Exc.2.10 (1.5-2.0cm) PWd1.04 (0.7-1.1cm)FS (%) 47 % LVDs2.12 (2.0-3.8cm)LVEF (%)79 (>50%) Mitral Valve MV E Lducbvvd18.5cm/sMV A Orjuzrtu89.7cm/sE/A ratio0.5 TDI E/Lateral E'0.0E/Medial E'0.0 LEFT VENTRICLE The left ventricle is normal size. There is borderline concentric left ventricular hypertrophy. Left ventricle systolic function is normal. The Ejection Fraction is 65-70%. There is normal LV segmental wall motion. Transmitral Doppler flow pattern is Grade I-abnormal relaxation pattern. There is no ventricular septal defect visualized. RIGHT VENTRICLE The right ventricle is normal size. The right ventricular systolic function is normal. ATRIA The left atrium size is normal. The right atrium size is normal. AORTIC VALVE The aortic valve is tri-cuspid. The aortic valve is normal in structure. No aortic regurgitation is present. There is no aortic valvular stenosis. MITRAL VALVE The mitral valve is normal in structure. There is no evidence of mitral valve prolapse. There is no mitral valve regurgitation noted. TRICUSPID VALVE The tricuspid valve is normal in structure. There is no tricuspid valve regurgitation noted. PULMONIC VALVE The pulmonary valve is normal in structure. There is no pulmonic valvular regurgitation. GREAT VESSELS The aortic root is normal in size. The ascending aorta is normal in size. The IVC is normal in size and collapses >50% with inspiration. PERICARDIAL EFFUSION There is no pericardial effusion. <Conclusion> There is borderline concentric left ventricular hypertrophy. Left ventricle systolic function is normal. The Ejection Fraction is 65-70%. Transmitral Doppler flow pattern is Grade I-abnormal relaxation pattern.
[2017-01-17 14:17] LABS: BASO # 0.1 K/uL (0.0-0.2); BASO % 1.1 % (0.0-2.0); EOS # 0.2 K/uL (0.0-0.7); EOS % 2.8 % (0.0-4.0); HEMATOCRIT 41.6 % (35.0-51.0); LYMPH # 1.6 K/uL (1.0-4.3); LYMPH % 23.4 % (20.0-40.0); MEAN CELL VOLUME 80.7 fL (80.0-94.0); MEAN CORPUSCULAR HEMOGLOBIN 26.8 pg (27.0-31.0); MEAN CORPUSCULAR HGB CONC 33.3 g/dL (33.0-37.0); MEAN PLATELET VOLUME 9.7 fL (7.2-11.7); MONO # 0.6 K/uL (0.0-0.8); MONO % 9.1 % (0.0-10.0); NRBC % 0.1 % (0.0-2.0); RED CELL DISTRIBUTION WIDTH 15.4 % (11.5-14.5); WHITE BLOOD COUNT 6.8 K/uL (4.8-10.8)
[2017-01-17 14:38] LABS: ALB/GLOB RATIO 1.3 (1.0-2.1); ALKALINE PHOSPHATASE 90 U/L (38-126); ALT/SGPT 38 U/L (21-72); AST/SGOT 20 U/L (17-59); BILIRUBIN,TOTAL 0.7 mg/dL (0.2-1.3); BLOOD UREA NITROGEN 23 mg/dL (9-20); CALCIUM 8.9 mg/dl (8.6-10.4); CARBON DIOXIDE 23 mmol/L (22-30); CHLORIDE 103 mmol/L (98-107); GFR AFRICAN-AMERICAN > 60; GLUCOSE,RANDOM 160 mg/dL (75-110); PHOSPHOROUS 3.3 mg/dL (2.5-4.5); POTASSIUM 3.8 mmol/L (3.6-5.2); SODIUM 141 mmol/L (132-148); TOTAL PROTEIN 6.6 g/dL (6.3-8.3)
--- NOTE | 2017-01-17 15:21 | CP.PCM.PN ---
Subjective - Date & Time of Evaluation Date of Evaluation: 01/17/17 Time of Evaluation: 15:15 - Subjective Subjective: Progress note Attending: Dr. Goodman Pt seen and examined at bedside. No acute distress. No events overnight. Neurology workup pending, MRI pending. No fevers, chills, vomiting, diarrhea, cp , sob. Objective - Vital Signs/Intake and Output Vital Signs (last 24 hours): Temp Pulse Resp BP Pulse Ox 97.8 F 75 18 134/81 99 01/17/17 07:30 01/17/17 11:20 01/17/17 07:30 01/17/17 11:21 01/17/17 07:30 Intake and Output: 01/17/17 01/17/17 06:59 18:59 Intake Total 350 Output Total 500 Balance -500 350 - Medications Medications: Current Medications Allopurinol (Zyloprim) 100 mg PO BID [facility] Last Admin: 01/17/17 11:22 Dose: 100 mg Alprazolam (Xanax) 0.25 mg PO BID [facility] Stop: 01/22/17 18:01 Last Admin: 01/17/17 11:29 Dose: 0.25 mg Aspirin (Aspirin) 325 mg PO DAILY [facility] Last Admin: 01/17/17 11:22 Dose: 325 mg Carvedilol (Coreg) 12.5 mg PO BID [facility] Last Admin: 01/17/17 11:21 Dose: 12.5 mg Clopidogrel Bisulfate (Plavix) 75 mg PO DAILY [facility] Last Admin: 01/17/17 11:22 Dose: 75 mg Colchicine (Colocrys) 0.6 mg PO BID [facility] Last Admin: 01/17/17 11:22 Dose: 0.6 mg Guaifenesin (Robitussin) 200 mg PO Q6H PRN PRN Reason: Cough Last Admin: 01/16/17 21:33 Dose: 200 mg Lamotrigine (Lamictal) 50 mg PO BID [facility] Last Admin: 01/17/17 11:22 Dose: 50 mg Losartan Potassium (Cozaar) 100 mg PO DAILY [facility] Last Admin: 01/17/17 11:22 Dose: 100 mg Meclizine HCl (Antivert) 25 mg PO TID PRN PRN Reason: Dizziness Last Admin: 01/16/17 09:07 Dose: 25 mg Pneumococcal Polyvalent Vaccine (Pneumovax 23 Vaccine) 0.5 ml IM .ONCE ONE Stop: 01/18/17 10:01 Rosuvastatin Calcium (Crestor) 40 mg PO HS [facility] Last Admin: 01/16/17 21:33 Dose: 40 mg - Labs Labs: 01/17/17 14:02 01/17/17 14:02 PT 12.7 SECONDS (9.7-12.2) H 01/15/17 13:59 INR 1.1 01/15/17 13:59 APTT 30 SECONDS (21-34) 01/15/17 13:59 - Constitutional Appears: Non-toxic, No Acute Distress - Head Exam Head Exam: ATRAUMATIC, NORMAL INSPECTION, NORMOCEPHALIC - Eye Exam Eye Exam: EOMI - ENT Exam ENT Exam: Mucous Membranes Moist - Neck Exam Neck Exam: Full ROM, Normal Inspection - Respiratory Exam Respiratory Exam: NORMAL BREATHING PATTERN. absent: Respiratory Distress - Cardiovascular Exam Cardiovascular Exam: +S1, +S2 - GI/Abdominal Exam GI & Abdominal Exam: Soft, Normal Bowel Sounds. absent: Tenderness - Extremities Exam Extremities Exam: Full ROM, Normal Inspection - Neurological Exam Neurological Exam: Alert, Awake, Oriented x3 - Psychiatric Exam Psychiatric exam: Normal Affect, Normal Mood - Skin Skin Exam: Dry, Intact, Normal Color, Warm Assessment and Plan - Assessment and Plan (Free Text) Assessment: This is a 71 yo male with past medical hx of HTN, HLD, questionable seizures presenting with dizziness, r/o stroke 1. Dizziness -asa 325 daily -continue plavix daily -neurology consulted. recs appreciated. -continue meclizine -continue crestor -MRI pending -EEG pending -EKG shows NSR -carotid dopplers pending -CXR negative -head CT negative 2. hx of gout continue allopurinol -continue colchicine 3. hx of anxiety -continue xanax prn 4. hx of HTN -continue coreg daily -continue losartan 5. hx of seizures -continue lamotrigine daily 6. GI/DVT ppx -SCDs -protonix discussed with Dr. Goodman.
--- NOTE | 2017-01-17 16:50 | MRI ---
PROCEDURE: MRI BRAIN WITHOUT CONTRAST HISTORY: tia COMPARISON: Brain MRI 03/15/[address] 01/15/2017. TECHNIQUE: Multiplanar, multisequence MR images of the brain were obtained without intravenous contrast enhancement. FINDINGS: HEMORRHAGE: None DWI: No evidence of an acute or early subacute infarction. BRAIN PARENCHYMA: Mild diffuse cerebral atrophy and chronic microangiopathy are reiterated the current examination. No definite acute intracranial findings are appreciable. No mass effect or suspicious extra-axial fluid collection is appreciable. Examination not appreciably changed in the interval. VENTRICLES: Unremarkable. No hydrocephalus. CRANIUM: Unremarkable. ORBITS: Grossly unremarkable. PARANASAL SINUSES/MASTOIDS: Clear VASCULAR SYSTEM: Skull base flow voids intact. OTHER FINDINGS: None. IMPRESSION: Stable limited age-related neuro degenerative changes are reiterated the current examination, not significantly changed in the interval. Acute intracranial findings.
--- NOTE | 2017-01-17 20:12 | PN ---
SUBJECTIVE: The patient is sitting on the bed, in no acute distress. Denies having any further dizziness. He has no difficulty with speech. PHYSICAL EXAMINATION: VITAL SIGNS: His blood pressure is 113/72, heart rate is 82 per minute, breathing at the rate of 16 per minute, temperature is 97.2 degrees Fahrenheit. HEENT: Normocephalic and atraumatic. NECK: Supple. There are no carotid bruits. LUNGS: Clear. CVS: S1 and S2 audible. No murmurs. ABDOMEN: Soft, nontender. Bowel sounds are present. NEUROLOGIC: Mental Status: The patient is awake, alert, oriented to time, place and person. Speech is fluent. Naming and repetition are normal. Memory and cognition are intact. Cranial nerve examination: Pupils are 3 mm bilaterally, reactive to light. Visual grady are full. Extraocular movements are intact. There is no facial asymmetry. Tongue is midline. Motor examination: Tone is normal. Power is 5/5 bilaterally in all extremities. [id number] shows no dysmetria. LABORATORY DATA: Labs reviewed. MRI of the brain stable, limited, age related, neuro degenerative changes reiterated at the current examination. No change in the interval. He had the carotid Doppler studies, which is normal. He also had an electroencephalogram done, which is normal as well. IMPRESSION: Status post slurring of speech associated with dizziness, likely secondary to transient ischemic attack. RECOMMENDATIONS: 1. The patient to be continued on aspirin. 2. The patient has been on Lamictal, which is to be continued. 3. The patient had electroencephalogram, which shows no epileptogenic activity. 4. The patient had no further episode of slurring of speech. 5. The patient's dizziness is better. 6. The patient is neurologically stable for discharge with outpatient followup. Thank you for the opportunity to participate in the care of this patient. Ronnie Marin MD
--- NOTE | 2017-01-17 21:51 | CP.PCM.PN ---
Subjective - Date & Time of Evaluation Date of Evaluation: 01/17/17 Time of Evaluation: 12:00 - Subjective Subjective: clinically same Objective - Vital Signs/Intake and Output Vital Signs (last 24 hours): Temp Pulse Resp BP Pulse Ox 97.2 F L 82 18 125/78 97 01/17/17 16:36 01/17/17 16:36 01/17/17 16:36 01/17/17 18:14 01/17/17 16:36 Intake and Output: 01/17/17 01/18/17 18:59 06:59 Intake Total 350 Balance 350 - Medications Medications: Current Medications Allopurinol (Zyloprim) 100 mg PO BID [facility] Last Admin: 01/17/17 18:14 Dose: 100 mg Alprazolam (Xanax) 0.25 mg PO BID [facility] Stop: 01/22/17 18:01 Last Admin: 01/17/17 18:16 Dose: 0.25 mg Aspirin (Aspirin) 325 mg PO DAILY [facility] Last Admin: 01/17/17 11:22 Dose: 325 mg Carvedilol (Coreg) 12.5 mg PO BID [facility] Last Admin: 01/17/17 18:14 Dose: 12.5 mg Clopidogrel Bisulfate (Plavix) 75 mg PO DAILY [facility] Last Admin: 01/17/17 11:22 Dose: 75 mg Colchicine (Colocrys) 0.6 mg PO BID [facility] Last Admin: 01/17/17 18:16 Dose: 0.6 mg Guaifenesin (Robitussin) 200 mg PO Q6H PRN PRN Reason: Cough Last Admin: 01/16/17 21:33 Dose: 200 mg Lamotrigine (Lamictal) 50 mg PO BID [facility] Last Admin: 01/17/17 18:14 Dose: 50 mg Losartan Potassium (Cozaar) 100 mg PO DAILY [facility] Last Admin: 01/17/17 11:22 Dose: 100 mg Meclizine HCl (Antivert) 25 mg PO TID PRN PRN Reason: Dizziness Last Admin: 01/16/17 09:07 Dose: 25 mg Pneumococcal Polyvalent Vaccine (Pneumovax 23 Vaccine) 0.5 ml IM .ONCE ONE Stop: 01/18/17 10:01 Rosuvastatin Calcium (Crestor) 40 mg PO HS [facility] Last Admin: 01/16/17 21:33 Dose: 40 mg - Labs Labs: 01/17/17 14:02 01/17/17 14:02 PT 12.7 SECONDS (9.7-12.2) H 01/15/17 13:59 INR 1.1 01/15/17 13:59 APTT 30 SECONDS (21-34) 01/15/17 13:59 - Constitutional Appears: Well - Head Exam Head Exam: ATRAUMATIC, NORMAL INSPECTION, NORMOCEPHALIC - Eye Exam Eye Exam: EOMI, Normal appearance, PERRL Pupil Exam: NORMAL ACCOMODATION, PERRL - ENT Exam ENT Exam: Mucous Membranes Moist, Normal Exam - Neck Exam Neck Exam: Full ROM, Normal Inspection. absent: Lymphadenopathy - Respiratory Exam Respiratory Exam: Decreased Breath Sounds - Cardiovascular Exam Cardiovascular Exam: Tachycardia, REGULAR RHYTHM, +S1, +S2 - GI/Abdominal Exam GI & Abdominal Exam: Soft, Diminished Bowel Sounds - Rectal Exam Rectal Exam: Deferred
[2017-01-18 00:27] VITALS: RESP 20
--- NOTE | 2017-01-18 06:17 | EEG ---
ELECTROENCEPHALOGRAM REPORT INTRODUCTION: This is a digitally recorded EEG monitoring using standard EEG montages. On background rhythm, the EEG shows a background activity of 10 Hz of activity in parieto-occipital region. The EEG activity is bilaterally symmetrical and synchronous. There is attenuation of the background activity on eye opening. No sleep recording was noted. Abnormal potentials; no spike, sharp waves, or focal slowing was seen. Photic stimulation and hyperventilation; photic stimulation did not reveal any abnormality. Hyperventilation was not performed. IMPRESSION: Normal electroencephalogram. No epileptiform activity seen in this electroencephalogram recording. Ronnie Marin MD
[2017-01-18 07:03] LABS: BASO # 0.1 K/uL (0.0-0.2); BASO % 1.8 % (0.0-2.0); EOS # 0.2 K/uL (0.0-0.7); EOS % 2.9 % (0.0-4.0); LYMPH # 1.5 K/uL (1.0-4.3); LYMPH % 22.8 % (20.0-40.0); MEAN CELL VOLUME 80.5 fL (80.0-94.0); MEAN CORPUSCULAR HEMOGLOBIN 27.1 pg (27.0-31.0); MEAN CORPUSCULAR HGB CONC 33.7 g/dL (33.0-37.0); MONO # 0.7 K/uL (0.0-0.8); MONO % 10.4 % (0.0-10.0); NRBC % 0.1 % (0.0-2.0); RED CELL DISTRIBUTION WIDTH 15.5 % (11.5-14.5); WHITE BLOOD COUNT 6.6 K/uL (4.8-10.8)
[2017-01-18 07:36] LABS: CHLORIDE 109 mmol/L (98-107); SODIUM 141 mmol/L (132-148)
[2017-01-18 07:37] LABS: POTASSIUM 4.3 mmol/L (3.6-5.2)
[2017-01-18 07:38] LABS: GFR AFRICAN-AMERICAN > 60
[2017-01-18 07:39] LABS: ALB/GLOB RATIO 1.3 (1.0-2.1); ALKALINE PHOSPHATASE 107 U/L (38-126); ALT/SGPT 51 U/L (21-72); AST/SGOT 34 U/L (17-59); BILIRUBIN,TOTAL 0.6 mg/dL (0.2-1.3); BLOOD UREA NITROGEN 23 mg/dL (9-20); CARBON DIOXIDE 24 mmol/L (22-30); GLUCOSE,RANDOM 127 mg/dL (75-110); PHOSPHOROUS 3.3 mg/dL (2.5-4.5); TOTAL PROTEIN 6.4 g/dL (6.3-8.3)
[2017-01-18 07:40] LABS: CALCIUM 8.5 mg/dl (8.6-10.4)
[2017-01-18] MEDS ORDERED: Pneumococcal 23-Valent Vaccine IM ONE (10:00)
--- NOTE | 2017-01-18 14:46 | VASCLAB ---
PROCEDURE: HISTORY: TIA COMPARISON: None available. TECHNIQUE: Grayscale and duplex Doppler evaluation of the cervical carotid and vertebral arteries were performed. The common carotid, carotid bifurcations and cervical Internal Carotid Artery (ICA) and proximal External Carotid Artery (ECA) were evaluated. The vertebral arteries were evaluated for gross patency and flow direction. Report prepared by SHAILA Puckett FINDINGS: RIGHT CAROTID ARTERIES: 1. Common Carotid Artery: No significant focal plaque formation of the right common carotid artery. Maximum Peak Systolic velocity: 67 cm/sec: End-diastolic velocity 13 cm/sec. 2. Carotid Bifurcation: plaque formation. Maximum Peak Systolic velocity: 46 cm/sec: End-diastolic velocity 12 cm/sec. 3. Internal Carotid Artery: Plaque description: Minimal calcific 3.1. Proximal Segment: Peak systolic velocity 46 cm/sec: End-diastolic velocity 18 cm/sec - % stenosis 0-15% 3.2. Middle Segment: Peak systolic velocity 78 cm/sec: End-diastolic velocity 31 cm/sec - % stenosis 0-15% 3.3. Distal Segment: Peak systolic velocity 102 cm/sec: End-diastolic velocity 31 cm/sec - % stenosis 0-15% 4. External Carotid Artery: No significant focal plaque formation. Peak systolic velocity 60 cm/sec 5. ICA/CCA Ratio: 1.7 LEFT CAROTID ARTERIES: 1. Common Carotid Artery: No significant focal plaque formation of the left common carotid artery. Maximum Peak Systolic velocity: 79 cm/sec: End-diastolic velocity 11 cm/sec. 2. Carotid Bifurcation: plaque formation. Maximum Peak Systolic velocity: 35 cm/sec: End-diastolic velocity 10 cm/sec. 3. Internal Carotid Artery: Plaque description: 3.1. Proximal Segment: Peak systolic velocity 62 cm/sec: End-diastolic velocity 19 cm/sec - % stenosis 0-15% 3.2. Middle Segment: Peak systolic velocity 53 cm/sec: End-diastolic velocity 19 cm/sec - % stenosis 0-15% 3.3. Distal Segment: Peak systolic velocity 67 cm/sec: End-diastolic velocity 25 cm/sec - % stenosis 0-15% 4. External Carotid Artery: No significant focal plaque formation. Peak systolic velocity 56 cm/sec 5. ICA/CCA Ratio: 1.2 VERTEBRAL ARTERIES: 1. Right Vertebral Artery: The right vertebral artery flow direction is antegrade. 2. Left Vertebral Artery: The left vertebral artery flow direction is antegrade. OTHER FINDINGS: 1. Right Brachial Blood pressure: 120 mmHg. 2. Left Brachial Blood pressure: 130 mmHg. IMPRESSION: RIGHT: Duplex scan does not suggest hemodynamically significant stenosis of the right extracranial carotid arteries. LEFT: Duplex scan does not suggest hemodynamically significant stenosis of the left extracranial carotid arteries.
[2017-01-18 15:34] VITALS: PULSE 89; O2SAT 97
--- NOTE | 2017-01-18 15:36 | CP.PCM.PN ---
Subjective - Date & Time of Evaluation Date of Evaluation: 01/18/17 Time of Evaluation: 08:00 - Subjective Subjective: PGY 3 Medicine Progress Note- Dr. Arjun Goodman's Service: Patient seen and examined at bedside this AM. Patient reports feeling well this AM. He is ambulating to and from the bathroom with no assistance. Admits all symptoms from admission have resolved. He is having regular BMs and is urinating without difficulty. Discharge pending as per Dr. Arjun Goodman given patient has been cleared for discharge from neuro standpoint. Objective - Vital Signs/Intake and Output Vital Signs (last 24 hours): Temp Pulse Resp BP Pulse Ox 98.0 F 89 20 124/84 97 01/18/17 08:47 01/18/17 15:16 01/18/17 08:47 01/18/17 10:01 01/18/17 15:16 Intake and Output: 01/18/17 01/18/17 06:59 18:59 Output Total 250 Balance -250 - Medications Medications: Current Medications Allopurinol (Zyloprim) 100 mg PO BID [facility] Last Admin: 01/18/17 10:02 Dose: 100 mg Alprazolam (Xanax) 0.25 mg PO BID [facility] Stop: 01/22/17 18:01 Last Admin: 01/18/17 10:02 Dose: 0.25 mg Aspirin (Aspirin) 325 mg PO DAILY [facility] Last Admin: 01/18/17 10:01 Dose: 325 mg Carvedilol (Coreg) 12.5 mg PO BID [facility] Last Admin: 01/18/17 10:01 Dose: 12.5 mg Clopidogrel Bisulfate (Plavix) 75 mg PO DAILY [facility] Last Admin: 01/18/17 10:02 Dose: 75 mg Colchicine (Colocrys) 0.6 mg PO BID [facility] Last Admin: 01/18/17 09:58 Dose: 0.6 mg Guaifenesin (Robitussin) 200 mg PO Q6H PRN PRN Reason: Cough Last Admin: 01/16/17 21:33 Dose: 200 mg Lamotrigine (Lamictal) 50 mg PO BID [facility] Last Admin: 01/18/17 10:02 Dose: 50 mg Losartan Potassium (Cozaar) 100 mg PO DAILY [facility] Last Admin: 01/18/17 10:01 Dose: 100 mg Meclizine HCl (Antivert) 25 mg PO TID PRN PRN Reason: Dizziness Last Admin: 01/16/17 09:07 Dose: 25 mg Rosuvastatin Calcium (Crestor) 40 mg PO HS [facility] Last Admin: 01/17/17 23:15 Dose: 40 mg - Labs Labs: 01/18/17 06:48 01/18/17 06:48 PT 12.7 SECONDS (9.7-12.2) H 01/15/17 13:59 INR 1.1 01/15/17 13:59 APTT 30 SECONDS (21-34) 01/15/17 13:59 - Constitutional Appears: No Acute Distress - ENT Exam ENT Exam: Mucous Membranes Moist - Neck Exam Neck Exam: Full ROM - Respiratory Exam Respiratory Exam: Clear to Ausculation Bilateral, NORMAL BREATHING PATTERN - Cardiovascular Exam Cardiovascular Exam: REGULAR RHYTHM, +S1, +S2 - GI/Abdominal Exam GI & Abdominal Exam: Soft. absent: Distended, Tenderness - Extremities Exam Extremities Exam: Full ROM, Normal Inspection - Back Exam Back Exam: NORMAL INSPECTION - Neurological Exam Neurological Exam: Alert, Awake, Oriented x3 - Psychiatric Exam Psychiatric exam: Normal Affect, Normal Mood - Skin Skin Exam: Dry, Normal Color, Warm Assessment and Plan (1) TIA (transient ischemic attack) Assessment & Plan: Neurology following- Dr. Ronnie Marin- recs appreciated * Continue asa daily * continue plavix daily * continue crestor * continue Lamicatal * no anticoagulant indicated at this time by neurologist. Patient neuro stable for discharge as per Dr. Marin. Imaging: -MRI of brain showed no acute pathology -EEG, carotid dopplers were normal -CXR negative -head CT negative Status: Acute (2) Seizure disorder Assessment & Plan: As per neuro, patient with history of questionable seizures. EEG done during admission was normal. Neuro recommends continuing with Lamictal home medication. Discharge planning to home today as per Dr. Arjun Goodman. All management as per Dr. Arjun Goodman Status: Acute
[2017-01-18 16:26] VITALS: BP 119/82; TEMP 98.2
--- NOTE | 2017-01-18 17:32 | CARD ---
APPROVED REPORT EKG Measurement Heart [id number] <Conclusion> Normal sinus rhythm Normal ECG
== END 2017-01-18 15:45 | disposition home or self-care (01) | DRG 69 ==
LOC: C.ER 13:02 → C.9E 14:31 → C.6T 15:26
PROVIDERS: ADMIT Internal Medicine Nephrology; ATTEND Internal Medicine Nephrology
DX: G45.9 Transient cerebral ischemic attack, unspecified (principal); I10 Essential (primary) hypertension; E78.00 Pure hypercholesterolemia, unspecified; M10.9 Gout, unspecified; R47.81 Slurred speech; Z79.82 Long term (current) use of aspirin; Z85.038 Personal history of other malignant neoplasm of large intestine

== ENCOUNTER 2017-05-04 10:15 | Emergency (ER) | payer MEDICARE ==
[2017-05-04 10:16] VITALS: BMI 29.0
[2017-05-04 10:23] VITALS: TEMP 97.5
[2017-05-04] MEDS ORDERED: Sodium Chloride 0.9% 500 ML IV ONE (10:55)
[2017-05-04] MEDS ORDERED: Sodium Chloride 0.9% 1,000 ML ONE (11:08)
[2017-05-04 11:09] LABS: BASO # 0.1 K/uL (0.0-0.2); BASO % 1.3 % (0.0-2.0); EOS # 0.1 K/uL (0.0-0.7); LYMPH # 1.2 K/uL (1.0-4.3); LYMPH % 17.2 % (20.0-40.0); MEAN CELL VOLUME 79.6 fL (80.0-94.0); MEAN CORPUSCULAR HEMOGLOBIN 26.9 pg (27.0-31.0); MEAN CORPUSCULAR HGB CONC 33.8 g/dL (33.0-37.0); MONO # 0.5 K/uL (0.0-0.8); MONO % 7.5 % (0.0-10.0); NRBC % 0.1 % (0.0-2.0); RED CELL DISTRIBUTION WIDTH 15.7 % (11.5-14.5); WHITE BLOOD COUNT 6.8 K/uL (4.8-10.8)
[2017-05-04 11:21] LABS: ALB/GLOB RATIO 1.3 (1.0-2.1); ALKALINE PHOSPHATASE 86 U/L (38-126); ALT/SGPT 36 U/L (21-72); AST/SGOT 24 U/L (17-59); BILIRUBIN,TOTAL 1.1 mg/dL (0.2-1.3); BLOOD UREA NITROGEN 20 mg/dL (9-20); CALCIUM 8.4 mg/dl (8.6-10.4); CARBON DIOXIDE 25 mmol/L (22-30); CHLORIDE 100 mmol/L (98-107); GFR AFRICAN-AMERICAN > 60; GLUCOSE,RANDOM 162 mg/dL (75-110); SODIUM 134 mmol/L (132-148)
--- NOTE | 2017-05-04 12:41 | VASCLAB ---
PROCEDURE: Right Lower Extremity Venous Duplex Exam. HISTORY: RLE PAIN, CRAMPING R/O DVT PRIORS: None. TECHNIQUE: Right common femoral, femoral, popliteal and posterior tibial, peroneal and great saphenous veins were evaluated. Flow was assessed with color Doppler, compressibility, assessment of phasic flow and augmentation response. Report prepared by STEPHANIE Choe, RVT FINDINGS: RIGHT: 1. Common Femoral Vein: 1.1. Compressibility - Fully compressible: Thrombus - None: Flow - Phasic: Augmentation -Normal: Reflux - None. 2. Femoral Vein: 2.1. Compressibility - Fully compressible: Thrombus - None: Flow - Phasic: Augmentation -Normal: Reflux - None. 3. Popliteal Vein: 3.1. Compressibility - Fully compressible: Thrombus - None: Flow - Phasic: Augmentation -Normal: Reflux - None. 4. Posterior Tibial Vein: 4.1. Compressibility - Fully compressible: Thrombus - None: Flow - Phasic: Augmentation -Normal: Reflux - None. 5. Peroneal Vein: 5.1. Compressibility - Fully compressible: Thrombus - None: Flow - Phasic: Augmentation -Normal: Reflux - None. 6. Great Saphenous Vein: 6.1. Compressibility - Fully compressible: Thrombus -None: Flow - Phasic: Augmentation - Normal: Reflux - None. OTHER FINDINGS: IMPRESSION: No evidence of deep or superficial vein thrombosis of the right lower extremity with excellent venous flow. Normal valve function noted of the right side. Normal venous flow noted in the left common femoral vein.
[2017-05-04 13:47] VITALS: BP 176/73; PULSE 53; RESP 18; O2SAT 100
--- NOTE | 2017-05-04 13:53 | C.PDOC ---
History Of Present Illness 71-year-old male presents to the emergency department with complaints of diffuse cramping in bilateral legs, greatest in right leg, for the past several weeks. Patient notes that cramping became more intense when he woke up this morning. He denies any falls or injuries, lower back pain, weakness, sensory changes, facial droop, hanges in speech or vision, or any other associated symptoms. Of note, patient states he has been hearing a ringing in his ear; has a scheduled ENT appointment for further evaluation. He denies any other complaints at this time. Time Seen by Provider: 05/04/17 10:30 Chief Complaint (Nursing): Altered Mental Status History Per: Patient, Family (daughter at bedside ) History/Exam Limitations: None Onset/Duration Of Symptoms: Days, Persistent Current Symptoms Are (Timing): Still Present Severity: Moderate Past Medical History Reviewed: Historical Data, Nursing Documentation, Vital Signs Vital Signs: Last Vital Signs Temp 97.5 F L 05/04/17 13:46 Pulse 53 L 05/04/17 13:46 Resp 18 05/04/17 13:46 BP 176/73 H 05/04/17 13:46 Pulse Ox 100 05/04/17 14:16 - Medical History PMH: Arthritis (Gout), HTN, Hypercholesterolemia - [facility] Procedures 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 Constitutional: Negative for: Fever Cardiovascular: Negative for: Chest Pain, Palpitations Respiratory: Negative for: Cough, Shortness of Breath Gastrointestinal: Negative for: Nausea, Vomiting, Abdominal Pain, Diarrhea Musculoskeletal: Positive for: Leg Pain Skin: Negative for: Rash Neurological: Negative for: Weakness, Numbness, Incoordination, Change in Speech , Confusion, Seizures, Headache, Dizziness Physical Exam - Physical Exam Appears: Well, Non-toxic, No Acute Distress Skin: Warm, Dry, No Rash Head: Atraumatic, Normacephalic Eye(s): bilateral: Normal Inspection, PERRL, EOMI Ear(s): Bilateral: Normal (cerumen present, not impacted.) Nose: Normal Oral Mucosa: Moist Lips: Normal Appearing Neck: Normal, Normal ROM, Supple Chest: Symmetrical Cardiovascular: Rhythm Regular Respiratory: Normal Breath Sounds, No Rales, No Rhonchi, No Wheezing Gastrointestinal/Abdominal: Normal Exam, Bowel Sounds, Soft, No Tenderness Extremity: Normal ROM, No Tenderness, No Pedal Edema, No Calf Tenderness, Capillary Refill (<2 seconds all digits ), No Swelling Extremity: Bilateral: Atraumatic, Normal Color And Temperature, Normal ROM Pulses: Left Dorsalis Pedis: Normal, Right Dorsalis Pedis: Normal Neurological/Psych: Oriented x3, Normal Speech, Normal Cognition, Normal Cranial Nerves, No Cerebellar Signs, Normal Motor, Normal Sensation ED Course And Treatment - Laboratory Results Result Diagrams: 05/04/17 11:05 05/04/17 11:05 O2 Sat by Pulse Oximetry: 100 (on RA) Pulse Ox Interpretation: Normal Progress Note: Bloodwork and venous doppler RLE ordered and reviewed. Patient given IV toradol, IV NS bolus. Venous doppler negative for acute DVT as per doppler tech. Bloodwork shows mild elevation in CK. Patient is on statin for hyperlipidemia, suspect possible statin myopathy. Patient instructed to follow up with PMD in 1-2 days for further evaluation and discussion of statin use. He was instructed to drink plenty of water, and understands he should return to ED if symptoms worsen. Reevaluation Time: 14:10 Reassessment Condition: Improved (Patient states he feels better, is ambulating normally in ED.) Disposition Counseled Patient/Family Regarding: Studies Performed, Diagnosis, Need For Followup, Rx Given - Disposition Referrals: Callum Little MD [Medical Doctor] - Disposition: HOME/ ROUTINE Disposition Time: 14:10 Condition: STABLE Additional Instructions: FOLLOW UP WITH YOUR DOCTOR IN 1-2 DAYS, AND DISCUSS YOUR STATIN USE/ELEVATED CK LEVEL DRINK PLENTY OF WATER RETURN TO EMERGENCY ROOM IF SYMPTOMS WORSEN SIGA CON MURRY MDICO EN 1-2 MEDEL, Y DISCUTIR MURRY USO STATIN / ELEVADO NIVEL DE CK BEBER ABUNDANTE AGUA REGRESE AL IVÁN DE EMERGENCIA SI LOS SNTOMAS EMPEORAN Prescriptions: Naproxen 375 mg PO BID PRN #20 tablet PRN Reason: pain Instructions: Leg Cramps (ED), Muscle Cramp (ED) Forms: [employer] (Swiss) Print Language: IRISH - POA Present On Arrival: None - Clinical Impression Clinical Impression: Muscle cramps, Statin myopathy - Scribe Statement The provider has reviewed the documentation as recorded by the Scribe (Chidi Fleming) All medical record entries made by the Scribe were at my direction and personally dictated by me. I have reviewed the chart and agree that the record accurately reflects my personal performance of the history, physical exam, medical decision making, and the department course for this patient. I have also personally directed, reviewed, and agree with the discharge instructions and disposition.
--- NOTE | 2017-05-05 15:49 | CARD ---
APPROVED REPORT EKG Measurement Heart [id number] <Conclusion> Normal sinus rhythm Normal ECG
== END 2017-05-04 14:15 | disposition home or self-care (01) ==
LOC: C.ER 10:15
DX: G72.0 Drug-induced myopathy (principal); T46.6X5A Adverse effect of antihyperlipidemic and antiarteriosclerotic drugs, initial encounter; R25.2 Cramp and spasm; E78.00 Pure hypercholesterolemia, unspecified; I10 Essential (primary) hypertension
CPT/HCPCS: 80053; 82550; 85025; 93005; 93971; 96374; 99285; J1885; J7040

== ENCOUNTER 2017-12-19 17:43 | Emergency (ER) | payer MEDICARE ==
[2017-12-19 17:44] VITALS: BMI 29.0
[2017-12-19 19:05] VITALS: TEMP 97.6
[2017-12-19 21:23] VITALS: O2SAT 98
--- NOTE | 2017-12-19 21:50 | C.PDOC ---
History Of Present Illness <Shima French - Last Filed: 12/19/17 21:30> <Ross Nieves - Last Filed: 12/19/17 23:59> HPI: Patient is a 72 year old male with a history of gout, hyperlipidemia, vertigo, CVA, arthritis, HTN, colon cancer who presents for evaluation of bilateral hand swelling and pain. Daughters present at bedside who state that his gout typically affects his hands, wrist, ankles and feet. He has reportedly been taking his gout medications regularly. He states that the swelling in his right hand started at the end of November. He was seen by his PMD and was started on Keflex and Bactrim at that time. Now states that his left hand is getting swollen as well. He states he cannot make a fist on his right hand due to the swelling. He also presents with red pruritic rash on his right upper back going around and under his right armpit for the past week. He is unsure if he had chicken pox as a child. He has not had the shingles vaccine. He denies fevers, chills, headache, chest pain, shortness of breath, abdominal pain, nausea, vomiting, diarrhea, constipation. PMH: CVA, HLD, gout, vertigo, HTN, colon cancer PSH: colon cancer surgery 6-7 years ago Social hx: Lives by himself in Senior citizen apartment. Meds: Keflex, Bactrim, Gabapentin, Bidil, Clopidogrel, Coreg Allergies: NKDA PMD: Dr. Callum Ernandez Roast Master: Dr. Alba Oncologist: Dr. Bennett [place] [facility] [place]Shima French[place] <Shima French - Last Filed: 12/19/17 21:30> <Ross Nieves - Last Filed: 12/19/17 23:59> Time Seen by Provider: 12/19/17 20:52 Chief Complaint (Nursing): Weakness/Neurological Deficit Past Medical History - Medical History PMH: Arthritis (Gout), HTN, Hypercholesterolemia Denies: Chronic Kidney Disease Family History: States: Unknown Family Hx - Social History Hx Tobacco Use: No Hx Alcohol Use: Yes Hx Substance Use: No - Immunization History Hx Tetanus Toxoid Vaccination: Yes Hx Influenza Vaccination: Yes Hx Pneumococcal Vaccination: No <Shima French - Last Filed: 12/19/17 21:30> Vital Signs: Last Vital Signs Temp 97.6 F 12/19/17 18:58 Pulse 79 12/19/17 22:18 Resp 20 12/19/17 22:18 BP 140/82 12/19/17 22:18 Pulse Ox 98 12/19/17 22:18 - [facility] Procedures INSERTION OF BONE VOID FILLER (09/13/14) REMOV INT FIX-TIB/FIBULA (09/13/14) Review Of Systems Constitutional: Negative for: Fever, Chills Cardiovascular: Negative for: Chest Pain, Palpitations, Edema Respiratory: Negative for: Cough, Shortness of Breath, SOB with Excertion Gastrointestinal: Negative for: Nausea, Vomiting, Abdominal Pain, Diarrhea Skin: Positive for: Rash Neurological: Negative for: Weakness, Numbness, Confusion, Altered Mental Status , Headache <Shima French - Last Filed: 12/19/17 21:30> Physical Exam - Physical Exam Appears: Well, Non-toxic Skin: Warm, Dry, Rash (right upper back radiating around under right armpit - erythematous, maculopapular, nonvesicular rash with mild scale.), Other ( erythema on face) Head: Atraumatic, Normacephalic Eye(s): bilateral: PERRL, EOMI Oral Mucosa: Moist Chest: Symmetrical, No Deformity, No Ecchymosis Cardiovascular: Rhythm Regular, No Friction Rub, No Murmur, No JVD Respiratory: Normal Breath Sounds, No Rales, No Rhonchi, No Stridor, No Wheezing Gastrointestinal/Abdominal: Bowel Sounds, Soft, No Tenderness, Distention Back: No CVA Tenderness, No Vertebral Tenderness, No Paraspinal Tenderness, Other (right paralumbar. Able to lift right leg without discomfort. ) Extremity: No Pedal Edema, No Calf Tenderness, Other (left ankle: skin changes with mild erythema, nontender, no lymphangitis, no edema. ) Pulses: Left Dorsalis Pedis: Normal, Right Dorsalis Pedis: Normal Neurological/Psych: Oriented x3, Normal Speech, Normal Motor <Shima French - Last Filed: 12/19/17 21:30> ED Course And Treatment O2 Sat by Pulse Oximetry: 98 <Shima French - Last Filed: 12/19/17 21:30> Medical Decision Making <Shima French - Last Filed: 12/19/17 21:30> <Ross Nivees - Last Filed: 12/19/17 23:59> Medical Decision Making: Seen and examined with resident. 72 y/o M p/w R hand/wrist pain where patient has had gout attacks multiple times before. States he has been taking his daily gout medication but has not taken any pain medication. He also notes R sided back pain that shoots down R leg for which he has an appointment set up for evaluation of sciatica. Patient also noted to have bilateral axillary rash that was just noticed today that is itchy but not painful. He denies motor weakness or numbness. On exam, rash appears scaly and erythematous with satellite lesions. R wrist is able to be flexed, swollen, mild erythema, already on antibiotics from PMD. Family is agreeable to pain medication now and refused blood work as patient already had blood work performed at PMD's office on 12/08 which patient had drawn while he was having all these symptoms already and he has follow up tomorrow to go over this blood work. I informed them they could return to the ED tonight should his condition change or worsen. (Ross Nieves) Disposition <Shima French - Last Filed: 12/19/17 21:30> - Disposition Disposition Time: 22:05 <Ross Nieves - Last Filed: 12/19/17 23:59> - Disposition Disposition: HOME/ ROUTINE Condition: STABLE Prescriptions: Clotrimazole 1% Cream [Lotrimin 1%] 1 applic TOP BID #1 tube Famotidine [Pepcid] 1 tab PO BID #14 tab Ibuprofen [Motrin] 600 mg PO Q6 #25 tab Instructions: Gout, Ringworm Forms: [email or web address] ([place]) - Clinical Impression Clinical Impression: Tinea corporis, Gout attack
[2017-12-19 22:21] VITALS: BP 140/82; PULSE 79; RESP 20
--- NOTE | 2017-12-20 12:01 | CARD ---
APPROVED REPORT Date of service: 12/19/2017 EKG Measurement Heart [id number] <Conclusion> Normal sinus rhythm Normal ECG
== END 2017-12-19 22:21 | disposition home or self-care (01) ==
LOC: C.ER 17:43
DX: B35.4 Tinea corporis (principal); M10.9 Gout, unspecified; I10 Essential (primary) hypertension; E78.5 Hyperlipidemia, unspecified; E78.00 Pure hypercholesterolemia, unspecified; Z85.038 Personal history of other malignant neoplasm of large intestine; Z86.73 Personal history of transient ischemic attack (TIA), and cerebral infarction without residual deficits